=== PATIENT | female | born 2000 | race Hispanic/Latino ===

== ENCOUNTER 2025-06-06 00:57 | Emergency (ER) | payer OTHER, SELFPAY ==
[2025-06-06] MEDS ORDERED: ACETAMINOPHEN 500 MG TAB ONE (01:54)
[2025-06-06] MEDS ORDERED: NA CHLORIDE 0.9% 2,000 ML ONE (01:55)
[2025-06-06 02:29] LABS: Absolute Lymphocytes (CBC) 0.3 K/uL (0.7-4.9); Hematocrit 38.9 % (36.0-45.0); Hemoglobin 12.9 g/dL (12.0-15.0); MCH 25.7 pg (27.0-35.0); MCHC 33.3 g/dL (32.0-36.0); MCV 77.3 fL (80-100); MPV 9.6 fL (7.6-11.3); Nucleated RBC Absolute Count 0.0 (0-0); Nucleated Red Blood Cells % 0.0 % (0-0); RBC Red Blood Cell Count 5.03 M/uL (3.86-4.86); White Blood Count 7.30 thou/uL (4.3-10.9)
[2025-06-06 02:46] LABS: ALT/SGPT 26 U/L (13-56); AST/SGOT 12 U/L (15-37); Albumin 3.9 g/dL (3.4-5.0); Albumin/Globulin Ratio 1.1 (1.1-1.8); Alkaline Phosphatase 97 U/L (45-117); Anion Gap 12.4 mEq/L (5.0-15.0); BUN Blood Urea Nitrogen 15 mg/dL (7-18); Globulin 3.4 g/dL (2.3-3.5); Glucose Level 105 mg/dL (74-106); Lipase 21 U/L (13-75); Potassium 3.4 mEq/L (3.5-5.1)
[2025-06-06 02:49] LABS: Troponin High Sensitivity < 3.0 pg/mL (<58.9)
[2025-06-06 04:05] LABS: Influenza A Ag Negative; Influenza B Ag Negative; SARS-CoV-2 Antigen Rapid Res Negative (Negative)
[2025-06-06 04:10] LABS: Differential Total Cells Count 100; Segmented Neutrophils 57 % (40-80)
[2025-06-06 04:11] LABS: Blood Morphology Comment NOT SEEN (NOT SEEN)
--- NOTE | 2025-06-06 04:21 | ER ---
Nurse's Notes [facility] Name: Georgia Moya Age: 24 yrs Sex: Female : 2000 Arrival Date: 06/06/2025 Time: 00:57 Bed 4 Private MD: Diagnosis: Nausea with vomiting, unspecified;Acute gastritis without bleeding;Headache Presentation: 06/06 01:18 Chief complaint: Patient states: WOKE UP WITH CHILLS AND NOW IS DIZZY WITH A HEADACHE. j Coronavirus screen: At this time, the client does not indicate any symptoms associated with coronavirus-19. Ebola Screen: No symptoms or risks identified at this time. Initial Sepsis Screen: Does the patient meet any 2 criteria? HR > 90 bpm. Yes Does the patient have a suspected source of infection? No. Patient's initial sepsis screen is negative. Risk Assessment: Do you want to hurt yourself or someone else? Patient reports no desire to harm self or others. Onset of symptoms was June 06, 2025. 01:18 Method Of Arrival: Ambulatory [facility] 01:18 Acuity: NEFTALI 3 j7 Triage Assessment: 01:25 General: Appears in no apparent distress. uncomfortable, Behavior is calm, cooperative, jj7 appropriate for age. Pain: Complains of pain in head. Pain: Pain Pain began suddenly, Also complains of nausea, photophobia. Neuro: Reports dizziness, headache. 04:50 Headache History: Denies prior headaches. 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 - Infectious Disease History:: Denies. - Social history:: Smoking status: Patient denies any tobacco usage or history of. Patient/guardian denies using alcohol, street drugs, IV drugs. Screenin:42 [facility] ED Fall Risk Assessment (Adult) History of falling in the last 3 months, 3 including since admission No falls in past 3 months (0 pts) Confusion or Disorientation No (0 pts) Intoxicated or Sedated No (0 pts) Impaired Gait No (0 pts) Mobility Assist Device Used No (0 pt) Altered Elimination No (0 pt) Score/Fall Risk Level 0 - 2 = Low Risk. Abuse screen: Denies threats or abuse. Denies injuries from another. Nutritional screening: No deficits noted. Tuberculosis screening: No symptoms or risk factors identified. Never had TB. Assessment: 01:42 General: Appears in no apparent distress. Behavior is calm, cooperative, appropriate mf3 for age. Pain: Complains of pain in face and abdomen Pain currently is 8 out of 10 on a pain scale. Neuro: Level of Consciousness is awake, alert, obeys commands, Oriented to person, place, time, situation. Cardiovascular: Capillary refill < 3 seconds Rhythm is sinus tachycardia. Respiratory: Reports Airway is patent Trachea midline Respiratory effort is even, unlabored. GI: Abdomen is flat, Bowel sounds present X 4 quads. Abd is non tender in right lower quadrant. : No signs and/or symptoms were reported regarding the genitourinary system. EENT: No signs and/or symptoms were reported regarding the EENT system. Derm: Skin is intact, is healthy with good turgor, Skin is pink, warm \T\ dry. Musculoskeletal: Capillary refill < 3 seconds. 04:50 Reassessment: Patient and/or family updated on plan of care and expected duration. Pain mf3 level reassessed. Patient is alert, oriented x 3, equal unlabored respirations, skin warm/dry/pink. Patient states feeling better. Patient states symptoms have improved. Vital Signs: 01:18 BP 113 / 78; Pulse 150; Resp 21; Temp 98.1; Pulse Ox 100% ; Weight 68.04 kg; Height 5 jj7 ft. 2 in. ; 02:00 BP 103 / 73; Pulse 125; Resp 21; Pulse Ox 99% on R/A; mf3 04:00 BP 115 / 85; Pulse 100; Resp 19; Pulse Ox 100% on R/A; mf3 01:18 Body Mass Index 27.44 (68.04 kg, 157.48 cm) j7 Vitals: 01:42 Cardiac Rhythm Assessment Sinus tach. mf3 Gurmeet Coma Score: 01:42 Eye Response: spontaneous(4). Motor Response: obeys commands(6). Verbal Response: mf3 oriented(5). Total: 15. ED Course: 00:59 Patient arrived in ED. mr 01:23 Triage completed. jj7 01:25 Arm band placed on right wrist. Patient placed in an exam room. jj7 01:38 Rashaun Woodruff DO is Attending Physician. tt7 01:42 Charlotte Shields, RN is Primary Nurse. mf3 01:42 Bed in low position. Call light in reach. Side rails up X2. Provided Education on: pt mf3 educated on POC. 01:42 No provider procedures requiring assistance completed. Inserted saline lock: 20 gauge mf3 in right antecubital area, using aseptic technique. 02:33 Chest Single View XRAY In Process Unspecified. EDMS 04:50 IV discontinued, intact, bleeding controlled, No redness/swelling at site. Pressure mf3 dressing applied. Administered Medications: 02:03 Drug: Acetaminophen PO 1000 mg PO once Route: PO; bm8 04:54 Follow up: Response: No adverse reaction 3 02:03 Drug: NS 0.9% IV (30 ml/kg) 30 ml/kg IV at bolus once; Sepsis Protocol; to be given as bm8 a bolus over 90 minutes Route: IV; Rate: bolus; Site: right antecubital; 04:54 Follow up: Response: No adverse reaction; IV Status: Completed infusion 3 04:32 Drug: Rocephin IV 2 grams IV at bolus once; Given slow IV push per pharmarcy 3 instructions Route: IV; Rate: bolus; Site: right antecubital; 04:53 Follow up: Response: No adverse reaction; IV Status: Completed infusion 3 Medication: 01:42 VIS not applicable for this client. 3 Outcome: 04:21 Discharge ordered by . tt7 04:51 Discharged to home ambulatory, with family, mf3 04:51 Condition: improved 04:51 Condition: stable 04:51 Discharge instructions given to patient, family, Instructed on discharge instructions, follow up and referral plans. Demonstrated understanding of instructions, follow-up care, medications, Prescriptions given X 1, 04:52 Patient left the ED. 3 Signatures: Dispatcher [employer] EDME Rebecca Andion, Reg Reg mr Ch, Mirella, LAURO RESTREPO jLouis Matthews RN RN bm8 Charlotte Shields RN RN 3 Tarleton, Rashaun, DO DO tt7
--- NOTE | 2025-06-06 04:22 | EDPHYS ---
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 - Infectious Disease History:: Denies. - Social history:: Smoking status: Patient denies any tobacco usage or history of. Patient/guardian denies using alcohol, street drugs, IV drugs. Vital Signs: 01:18 BP 113 / 78; Pulse 150; Resp 21; Temp 98.1; Pulse Ox 100% ; Weight 68.04 kg; Height 5 [facility] ft. 2 in. ; 02:00 BP 103 / 73; Pulse 125; Resp 21; Pulse Ox 99% on R/A; mf3 04:00 BP 115 / 85; Pulse 100; Resp 19; Pulse Ox 100% on R/A; mf3 01:18 Body Mass Index 27.44 (68.04 kg, 157.48 cm) [facility] [place] Coma Score: 01:42 Eye Response: spontaneous(4). Motor Response: obeys commands(6). Verbal Response: mf3 oriented(5). Total: 15. MDM: 01:38 Medical Screening Exam initiated 06/06 01:50 Order name: Blood Culture Adult (2) 06/06 01:50 Order name: CBC with Diff; Complete Time: 04:12 06/06 01:50 Order name: CMP; Complete Time: 03:07 06/06 01:50 Order name: Lactate w/ 2H reflex if indic.; Complete Time: 03:07 06/06 01:50 Order name: Troponin HS; Complete Time: 03:07 06/06 01:50 Order name: Test, Serum; Complete Time: 03:07 06/06 01:50 Order name: Lipase; Complete Time: 03:07 06/06 02:32 Order name: Manual Differential; Complete Time: 04:12 EDMS 06/06 02:37 Order name: COVID-19 Ag + Flu A+B Ag; Complete Time: 04:13 06/06 02:50 Order name: Ghost Lactate-NO COLLECT Timer; Complete Time: 04:50 EDMS 06/06 01:50 Order name: Chest Single View XRAY; Complete Time: 18:04 06/06 01:50 Order name: EKG; Complete Time: 01:50 06/06 01:50 Order name: Accucheck; Complete Time: 02:04 06/06 01:50 Order name: Cardiac monitoring; Complete Time: 02:04 06/06 01:50 Order name: EKG - Nurse/Tech; Complete Time: 02:04 06/06 01:50 Order name: IV Saline Lock - Large Bore; Complete Time: 02:04 06/06 01:50 Order name: Labs collected and sent; Complete Time: 02:04 06/06 01:50 Order name: O2 Per Protocol; Complete Time: 02:04 06/06 01:50 Order name: O2 Sat Monitoring; Complete Time: 02:04 06/06 01:50 Order name: Vital Signs; Complete Time: 02:04 tt Administered Medications: 02:03 Drug: Acetaminophen PO 1000 mg PO once Route: PO; bm8 04:54 Follow up: Response: No adverse reaction mf3 02:03 Drug: NS 0.9% IV (30 ml/kg) 30 ml/kg IV at bolus once; Sepsis Protocol; to be given as bm8 a bolus over 90 minutes Route: IV; Rate: bolus; Site: right antecubital; 04:54 Follow up: Response: No adverse reaction; IV Status: Completed infusion mf3 04:32 Drug: Rocephin IV 2 grams IV at bolus once; Given slow IV push per pharmarcy mf3 instructions Route: IV; Rate: bolus; Site: right antecubital; 04:53 Follow up: Response: No adverse reaction; IV Status: Completed infusion mf3 Disposition Summary: 06/06/25 04:21 Discharge Ordered Notes: Location: Home tt7 Problem: new tt7 Symptoms: are resolved tt7 Condition: Stable tt7 Diagnosis - Nausea with vomiting, unspecified tt7 - Acute gastritis without bleeding tt7 - Headache tt7 Followup: tt7 - With: Emergency Department - When: As needed - Reason: Followup: tt7 - With: Private Physician - When: 1 - 2 days - Reason: Recheck today's complaints, Re-evaluation by your physician Discharge Instructions: - Discharge Summary Sheet tt7 - Gastritis, Adult tt7 Forms: - Work release form br2 - Medication Reconciliation Form tt7 - Antibiotic Education tt7 - Prescription Opioid Use tt7 - Patient Portal Instructions tt7 - Leadership Thank You Letter tt7 Prescriptions: - Zofran 4 mg Oral Tablet - take 1 tablet ORAL route every 12 hours As needed; 20 tablet; Refills: 0, tt7 Product Selection Permitted Addendum: 06/09/2025 18:04 Addendum: 24-year-old female presents emergency department complaining of chills, mild t t7 diffuse achy headache, and nausea with multiple episodes of nonbloody nonbilious vomiting that started today, denies sick contacts, denies significant past medical history. Constitutional: denies fever Respiratory: denies SOB, cough Cardiovascular: denies chest pain, palpitations GI: denies abdominal pain, reports nausea, vomiting Neuro: denies focal weakness Skin: denies rash Constitutional: vital signs reviewed, well appearing Head: normocephalic, atraumatic Eyes: no conjunctival injection, anicteric sclerae ENMT: mucus membranes somewhat dry Neck: trachea midline, no JVD, no meningismus Respiratory: normal respiratory effort, no accessory muscle use, lungs CTAB, no wheezing or rales Cardiovascular: Tachycardic, regular rhythm, no murmurs, no rubs, no lower extremity edema Abdomen: soft, nondistended, nontender, no guarding or rebound, negative Angelo's sign, no McBurney point tenderness MSK: normal ROM of extremities, no gross deformities Skin: warm, dry, intact, no rash Neuro: alert and oriented with appropriate mental status, normal speech, follows commands, no focal neurologic deficits Psych: appropriate mood and affect I independently interpreted the patient's chest x-ray. On my interpretation, chest x-ray demonstrates no radiographic evidence of acute cardiopulmonary disease Patient presents with nausea and vomiting, she is tachycardic, dry mucous membranes, she is normotensive and well-appearing otherwise, benign abdominal exam, suspect hypovolemia due to nausea/vomiting, likely acute gastritis, standard sepsis workup ordered including blood cultures, empiric ceftriaxone given, overall workup results are reassuring, no evidence of serious bacterial infection, patient was treated with IV antiemetics and fluids, heart rate normalized, patient felt significantly better and symptoms had resolved, was able to tolerate oral intake in the emergency department, I believe patient's presentation is consistent with acute gastritis likely of viral origin, plan to discharge with return precautions and prescription for as needed Zofran, after completion of the patient's emergency department evaluation, I do not suspect a life-threatening or disabling process. Patient is medically stable and not in need of emergent medical intervention. I had a detailed discussion with the patient regarding the historical points, exam findings, emergency department evaluation, diagnostic results, and the discharge diagnosis. I instructed the patient on outpatient management of their condition. I discussed the need for outpatient follow-up with a primary care physician. I informed the patient on return precautions, including the need to return to the ED if symptoms do not improve, worsen, or if there are any questions or concerns that arise at home. The patient was discharged in stable condition . Co-signature as Attending Physician, Rashaun Woodruff DO. Signatures: Dispatcher [employer] Mirella Chambers RN RN jj7 Louis Sheehan RN RN bm8 Charlotte Shields RN RN mf3 Rashaun Woodruff DO DO tt7
[2025-06-06] MEDS ORDERED: CEFTRIAXONE 2000 MG/VIAL ONE (04:23)
[2025-06-06 05:03] VITALS: TEMP 98.1
[2025-06-06 05:06] VITALS: BP 115/85; O2SAT 100
--- NOTE | 2025-06-06 06:39 | RAD REPORT ---
PROCEDURE: XR Chest, 1 View CLINICAL INDICATION: The patient is 24 years old and is Female; [place]. TECHNIQUE: Frontal view of the chest. COMPARISON: None. FINDINGS: LUNGS: No discrete focal consolidation. PLEURAL SPACE: No appreciable pleural effusion or pneumothorax. MEDIASTINUM: Unremarkable cardiomediastinal contour. BONES/JOINTS: No acute osseous abnormality. IMPRESSION: No acute cardiopulmonary abnormality. Electronically signed by: Brian Viera MD 06/06/2025 04:12 AM CDT RP Due to temporary technical issues with the PACS/N-Trig reporting system, reports are being sarahi d by the in-house radiologist without review as a courtesy to ensure prompt reporting the interpreting radiologist is fully responsible for the content of the report. Transcribed Date/Time: 06/06/2025 6:38 AM
== END 2025-06-06 04:52 | disposition home or self-care (01) ==
LOC: ER 00:57
DX: K29.00 Acute gastritis without bleeding (principal); R51.9 Headache, unspecified; Z11.52 Encounter for screening for COVID-19
CPT/HCPCS: 96365; 93005; 87040 ×2; 85025; 36415; 84703; 83605; 84484; 83690; 80053; 71045; 99284; 96366; 87428; J0696; J7030